=== PATIENT | male | born 1980 | race African-American/Black ===

== ENCOUNTER → 2016-12-24 | Outpatient (CLI) | payer MEDICAID | END | disposition home or self-care (01) | LOC: CFH 09:26 | PROVIDERS: ATTEND Family Medicine | DX: M25.551 Pain in right hip (principal); M25.552 Pain in left hip; G89.29 Other chronic pain ==

== ENCOUNTER → 2017-01-25 | Outpatient (CLI) | payer MEDICAID | END | disposition home or self-care (01) | LOC: CFH 13:05 | PROVIDERS: ATTEND Family Medicine | DX: M22.41 Chondromalacia patellae, right knee (principal); M22.42 Chondromalacia patellae, left knee; M25.462 Effusion, left knee; M25.461 Effusion, right knee ==

== ENCOUNTER → 2017-08-22 | Outpatient (CLI) | payer MEDICAID | END | disposition home or self-care (01) | LOC: CFH 07:04 | PROVIDERS: ATTEND Nurse Practitioner Family | DX: M51.17 Intervertebral disc disorders with radiculopathy, lumbosacral region (principal); M50.223 Other cervical disc displacement at C6-C7 level | CPT/HCPCS: 72050; 72141; 72148 ==

== ENCOUNTER → 2017-10-07 | Outpatient (CLI) | payer MEDICAID | LOC: CARD 10:27 | PROVIDERS: ATTEND Family Medicine | DX: G62.9 Polyneuropathy, unspecified (principal); G37.8 Other specified demyelinating diseases of central nervous system; M54.2 Cervicalgia | CPT/HCPCS: 95886; 95908 ==

== ENCOUNTER 2018-01-19 03:07 | Emergency (ER) | payer MEDICAID ==
[~2018-01-19] VITALS: Ht 182.9 cm; Wt 99.5 kg
[2018-01-19 03:09] VITALS: BP 114/75
[2018-01-19] MEDS ORDERED: IBUPROFEN 200 MG TABLET ONE (03:46)
[2018-01-19] MEDS ORDERED: LIDOCAINE-MPF 1%, 5ML ONE (03:46)
[2018-01-19] MEDS ORDERED: LIDOCAINE-MPF 1%, 5ML INFIL ONE (04:00)
[2018-01-19] MEDS ORDERED: IBUPROFEN 200 MG TABLET PO ONE (04:00)
[2018-01-19] MEDS ORDERED: BACITRACIN ZINC OINT 500U/GM, 0.9 GM ONE (04:40)
== END 2018-01-19 05:04 | disposition home or self-care (01) ==
LOC: ED 04:58
DX: S71.131A Puncture wound without foreign body, right thigh, initial encounter (principal); X95.9XXA Assault by unspecified firearm discharge, initial encounter; Y93.89 Activity, other specified; Y99.8 Other external cause status; Y92.009 Unspecified place in unspecified non-institutional (private) residence as the place of occurrence of the external cause
CPT/HCPCS: 12002; 99283

== ENCOUNTER → 2018-02-15 | Outpatient (CLI) | payer MEDICAID | END | disposition home or self-care (01) | LOC: WOUND 12:54 | PROVIDERS: ATTEND Family Medicine | DX: L97.112 Non-pressure chronic ulcer of right thigh with fat layer exposed (principal) | CPT/HCPCS: 99214 ==

== ENCOUNTER → 2018-02-22 | Outpatient (CLI) | payer MEDICAID | END | disposition home or self-care (01) | LOC: WOUND 13:30 | PROVIDERS: ATTEND Internal Medicine | DX: L97.112 Non-pressure chronic ulcer of right thigh with fat layer exposed (principal); G89.29 Other chronic pain | CPT/HCPCS: 97597 ==

== ENCOUNTER 2018-03-01 13:28 | Emergency (ER) | payer MEDICAID ==
[~2018-03-01] VITALS: Ht 182.9 cm; Wt 99.5 kg
[2018-03-01 13:37] VITALS: BP 108/68
[2018-03-01] MEDS ORDERED: FAMOTIDINE 20 MG TABLET PO ONE (14:00)
[2018-03-01] MEDS ORDERED: FAMOTIDINE 20 MG TABLET ONE (14:09)
== END 2018-03-01 14:23 | disposition home or self-care (01) ==
LOC: ED 14:14
DX: S50.862A Insect bite (nonvenomous) of left forearm, initial encounter (principal); S30.860A Insect bite (nonvenomous) of lower back and pelvis, initial encounter; S30.861A Insect bite (nonvenomous) of abdominal wall, initial encounter; W57.XXXA Bitten or stung by nonvenomous insect and other nonvenomous arthropods, initial encounter; Y93.89 Activity, other specified; Y99.8 Other external cause status; Y92.89 Other specified places as the place of occurrence of the external cause
CPT/HCPCS: 99283; Q0177

== ENCOUNTER → 2018-03-01 | Outpatient (CLI) | payer MEDICAID | END | disposition home or self-care (01) | LOC: WOUND 13:18 | PROVIDERS: ATTEND Internal Medicine | DX: L97.10 Non-pressure chronic ulcer of unspecified thigh (principal) | CPT/HCPCS: 99213 ==

== ENCOUNTER 2018-11-20 09:52 | Emergency (ER) | payer MEDICAID ==
[~2018-11-20] VITALS: Ht 182.9 cm; Wt 102.5 kg
[2018-11-20 09:55] VITALS: BP 118/76
[2018-11-20] MEDS ORDERED: KETOROLAC 30 MG/1 ML ONE (11:21)
--- NOTE | 2018-11-20 11:26 | NUR ---
Patient/Caregiver given discharge instructions and they have confirmed that they understand the instructions. Patient ambulatory with steady gait with crutches.
[2018-11-20] MEDS ORDERED: KETOROLAC 30 MG/1 ML IM ONE (11:30)
== END 2018-11-20 12:12 | disposition home or self-care (01) ==
LOC: ED 11:36
DX: S83.511A Sprain of anterior cruciate ligament of right knee, initial encounter (principal); G89.29 Other chronic pain; W13.3XXA Fall through floor, initial encounter; Y93.89 Activity, other specified; Y92.098 Other place in other non-institutional residence as the place of occurrence of the external cause; Y99.8 Other external cause status
CPT/HCPCS: 29505; 73564; 96372; 99283; J1885

== ENCOUNTER 2019-10-12 05:01 | Emergency (ER) | payer MEDICAID, OTHER ==
[~2019-10-12] VITALS: Ht 182.9 cm; Wt 107.8 kg
[2019-10-12 05:33] LABS: BASOPHILS # (AUTO) 0.02 x10^3/uL (0-0.1); BASOPHILS % (AUTO) 0 % (0-1); EOSINOPHILS # (AUTO) 0.21 x10^3/uL (0-0.4); EOSINOPHILS % (AUTO) 3 % (1-7); LYMPHOCYTES # (AUTO) 2.45 x10^3/uL (1-3.4); LYMPHOCYTES % (AUTO) 38 % (22-44); MD NO; MEAN CORPUSCULAR HEMOGLOBIN 28.8 pg (27.5-34.5); MEAN CORPUSCULAR VOLUME 87.3 fL (81-97); MEAN PLATELET VOLUME 8.5 fL (7.4-10.4); MONOCYTES # (AUTO) 0.37 x10^3/uL (0.2-0.8); MONOCYTES % (AUTO) 6 % (2-9); NEUTROPHILS # (AUTO) 3.47 x10^3/uL (1.8-6.8); NEUTROPHILS % (AUTO) 53 % (42-75); PLATELET COUNT 270 x10^3/uL (130-400); RED BLOOD COUNT 4.84 x10^6/uL (4.38-5.82)
--- NOTE | 2019-10-12 05:39 | NUR ---
MD AT BEDSIDE TO ASSESS PT
--- NOTE | 2019-10-12 05:40 | NUR ---
THIS IS A 39Y M THAT COMES IN W/ C/O BLOODY STOOL STARTING 0000. PT STS HE HAD 3 BLOODY STOOLS SINCE. PT RESTING ON ARGENIS WATSON VSS
--- NOTE | 2019-10-12 05:47 | NUR ---
PER LAB, SAMPLE HEMOLYZED, WILL REDRAW
--- NOTE | 2019-10-12 05:58 | NUR ---
PT EDUCATED ON NEED FOR URINE AND STOOL SAMPLES. STS UNABLE TO GO AT THIS TIME. PT PROVIDED PO FLUIDS PER ERP
--- NOTE | 2019-10-12 06:47 | NUR ---
REPORT GIVEN TO ANAM THOMSON
--- NOTE | 2019-10-12 06:51 | NUR ---
REPORT RECEIVED FROM BERTO CHRISTOPHER.
--- NOTE | 2019-10-12 06:52 | NUR ---
PT AMBULATORY WITH STEADY GAIT TO BATHROOM TO ATTEMPT TO PROVIDE URINE SAMPLE NOW.
--- NOTE | 2019-10-12 06:57 | NUR ---
URINE COLLECTED. PT UNABLE TO PROVIDE STOOL SAMPLE AT THIS TIME. PT NOW RESTING ON GURNEY. CONNECTED TO MONITOR. VSS. ARGENIS. DENIES NEEDS.
[2019-10-12 07:27] LABS: CULTURE INDICATED? YES; MICROSCOPIC INDICATED
[2019-10-12 07:31] LABS: ALANINE AMINOTRANSFERASE 58 U/L (12-78); ALBUMIN 3.7 g/dL (3.4-5.0); ANION GAP 3 mmol/L (5-15); CALCIUM 8.6 mg/dL (8.5-10.1); CHLORIDE 109 mmol/L (98-107); CREATININE 1.33 mg/dL (0.7-1.3)
[2019-10-12 07:33] LABS: ALKALINE PHOSPHATASE 96 U/L (45-117); BILIRUBIN,TOTAL 0.7 mg/dL (0.2-1.0); TOTAL PROTEIN 6.6 g/dL (6.4-8.2)
[2019-10-12 07:55] VITALS: BP 111/51
--- NOTE | 2019-10-12 07:55 | NUR ---
PT ASLEEP ON WALTER. NADN. PIZANOS. UP FOR RECHECK.
--- NOTE | 2019-10-12 08:32 | NUR ---
PT AWARE OF DC PLAN. GETTING DRESSED NOW.
== END 2019-10-12 08:40 | disposition home or self-care (01) ==
LOC: ED 05:57
DX: A09 Infectious gastroenteritis and colitis, unspecified (principal)
CPT/HCPCS: 36415; 80053; 81001; 85025; 87086; 99283

== ENCOUNTER 2020-03-30 19:39 | Emergency (ER) | payer SELFPAY ==
--- NOTE | 2020-03-30 20:06 | NUR ---
PATIENT LEFT FROM LOBBY BEFORE BEING TRIAGED
== END 2020-03-30 20:07 ==
LOC: ED 19:45
DX: R10.9 Unspecified abdominal pain (principal); R19.7 Diarrhea, unspecified; Z53.21 Procedure and treatment not carried out due to patient leaving prior to being seen by health care provider